=== PATIENT | male | born 1955 | race African-American/Black ===

== ENCOUNTER 2019-06-27 15:43 | Emergency (ER) | payer OTHER ==
--- OUTSIDE RECORDS SUMMARY | 2019-06-27 15:45 | XMS REPORT ---
:1955 Author Organization [facility] t Address [address] [place] [address] Care Team Providers Name Role Phone Yoselin GABRIEL Primary Care Physician Problems Condition Condition Condition Status Onset Resolution Last Treating Co mments Source Name Details Category Date Date Treatment Clinician Date HNP HNP Disease Active 2015-02 [place] (herniated (herniated 03-04 Me thodi nucleus nucleus 00:00: st pulposus), pulposus), 00 cervical cervical Cervical Cervical Disease Active 2015-02 [place] spondylosi spondylosi 03-04 Me thodi s without s without 00:00: st myelopathy myelopathy 00 Displaceme Displaceme Disease Active 2015-02 [place] of nt of 02-18 Method[facility] cervical cervical 00:00: st interverte interverte 00 bral disc bral disc without without myelopathy myelopathy Allergies, Adverse Reactions, Alerts This patient has no known allergies or adverse reactions. Family History Family Member Diagnosis Comments Start Date Stop Date Source Natural father Cancer [facility] Social [facility] Social Habit Start Date Stop Date Quantity Comments Source Sex Assigned At [facility] ethodi Alcohol intake 2016-01-17 2016-01-17 Current drinker of Enzo Alexis 00:00:00 00:00:00 alcohol (finding) Alcohol Comment 2015-10-29 2015-10-29 occasional [facility] ethodist 00:00:00 00:00:00 Smoking Status Start Date Stop Date Source Never smoker [place] [facility] Medications Ordered Filled Start Stop Current Ordering Indication Dosage Frequency Signature Comments Components Source Medication Medication Date Date Medication? Clinician (SIG) Name Name zolpidem Yes 5mg QD Take 5 mg [place] (AMBIEN) 5 1-05 by mouth Metho di MG tablet 17:26: nightly as st 16 needed for sleep. gabapentin 2015-02 Yes TAKE ONE Kyle ston (NEURONTIN) 2-12 CAPSULE BY Wy thodi 300 mg 00:00: MOUTH 3 st capsule 00 TIMES A DAY tamsulosin 2015-02 Yes .4mg QD Take 0.4 [place] st[place] (FLOMAX) 2-02 mg by Methodi 0.4 mg 20:13: mouth st capsule,ext 47 daily. ended release 24hr celecoxib 2015-02 Yes 200mg Q.5D Take 200 [place] st[place] (CeleBREX) 2-02 mg by Methodi 200 MG 20:13: mouth 2 st capsule 47 (two) times a day. losartan 2015-02 Yes 50mg QD Take 50 mg Kyle ston (COZAAR) 50 1-16 by mouth Meth makenzie MG tablet 00:00: once st 00 daily. HYDROcodone Yes TAKE 1 TO [place] -acetaminop 9-17 2 TABLETS Met hodi hen (NORCO 00:00: BY MOUTH 4 s t 10-325) 00 TIMES A 10-325 mg DAY per tablet NEEDED FOR PAIN pantoprazol Yes 40mg QD Take 40 mg Son e 9-14 by mouth Methodi (PROTONIX) 00:00: nightly. st 40 MG EC 00 tablet zolpidem Yes 10mg QD Take 10 mg [place] (AMBIEN) 10 9-09 by mouth Meth makenzie mg tablet 00:00: nightly. st 00 Procedures This patient has no known procedures. Plan of Care Planned Activity Planned Date Details Comments Source Future Scheduled 2019-09-13 INFLUENZA VACCINE [place] [facility] 00:00:00 [code = INFLUENZA VACCINE] Future Scheduled 2005-06-09 COLONOSCOPY SCREENING [facility] [facility] 00:00:00 [code = COLONOSCOPY SCREENING] Future Scheduled 2005-06-09 SHINGLES VACCINES [place] [facility] 00:00:00 (#1) [code = SHINGLES VACCINES (#1)] Results This patient has no known results.
--- OUTSIDE RECORDS SUMMARY | 2019-06-27 15:45 | XMS REPORT | Clinical Summary ---
:1955 Author Organization [facility] Address [address] [place] [address] Care Team Providers Name Role Phone Fab Wyatt MD Primary Care Provider Allergies No Known Allergies Medications Medication Sig Dispensed Refills Start Date End Date Status tamsulosin (FLOMAX) Take 0.4 mg by 0 Active 0.4 mg mouth daily. capsule,extended release 24hr zolpidem (AMBIEN) 5 MG Take 5 mg by 0 Active tablet mouth nightly as needed for sleep. HYDROcodone-acetaminop TAKE 1 TO 2 0 10/30/2015 Active hen (NORCO 10-325) TABLETS BY MOUTH 10-325 mg per tablet 4 TIMES A DAY NEEDED FOR PAIN pantoprazole Take 40 mg by 10 10/27/2015 Ac tive (PROTONIX) 40 MG EC mouth nightly. tablet zolpidem (AMBIEN) 10 Take 10 mg by 3 10/22/2015 Active mg tablet mouth nightly. losartan (COZAAR) 50 Take 50 mg by 1 12/29/2015 Active MG tablet mouth once daily. celecoxib (CeleBREX) Take 200 mg by 0 Active 200 MG capsule mouth 2 (two) times a day. 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 Last Filed Vital Signs Not on file Plan of Treatment Health Maintenance Due Date Last Done Comments COLONOSCOPY SCREENING 06/09/2005 SHINGLES VACCINES (#1) 06/09/2005 INFLUENZA VACCINE 09/13/2019 Implants Implanted Type Area Criminal Research Specialist Device Shelf Model / Serial Identifier Expiration / Lot Date System Spine Selnt For Dural Selng Exact 5ml Duraseal - [id number] Cardiovascular N/A: INTEGRA 12/12/2016 [id number] / Implanted: 10/29/2015 at [facility] (Quantity not on file) Imp lants N/A LIFESCIENCE / NEURO [id number] Spacer Algrft Acf Lordtc Ang 5deg 6mm - [id number] - [id number] Human Tissue N/A: MUSCULOSKELETAL 08/25/2016 [id number] / Implanted: Qty: 1 on 01/14/2016 by José Aviles MD at [facility] Implants N/A TRANSPLANT [id number] / FOUNDATION [id number] Kit Putty Bone 1.5ml Mastergraft - [id number] - [id number] Human Tiss ue N/A: MEDTRONIC SPINAL 06/12/2019 [id number] / Implanted: Qty: 1 on 01/14/2016 by José Aviles MD at [facility] Implants N/A AND BIOLOGICS [id number] / [id number] Spacer Algrft Acf Lordtc Ang 5deg 6mm - [id number] - [id number] Human Tissue N/A: MUSCULOSKELETAL 06/30/2016 [id number] / Implanted: Qty: 1 on 01/14/2016 by José Aviles MD at [facility] Implants N/A TRANSPLANT [id number] / FOUNDATION [id number] Plate Cerv Ant 42.5mm [place] Vision Elite - [id number] Spinal I mplants N/A: MEDTRONIC SPINAL [id number] / Implanted: 01/14/2016 at [facility] (Quantity not on file) N/A AND BIOLOGICS / Screw Spinal Slf-Drl V-Ang 4x17mm - [id number] Spinal Implants N/ A: MEDTRONIC SPINAL [id number] / Implanted: 01/14/2016 at [facility] (Quantity not on file) N/A AND BIOLOGICS / Matrix Hmstc Floseal 10ml W/ Humn F2 - [id number] Surgical N/A: LARSON 02/11/2017 [id number] / Implanted: 10/29/2015 at [facility] (Quantity not on file) Imp lants; N/A BIOSCIENCE / Expanders; [id number] Extenders; Surgical Wires Matrix Hmstc Floseal 10ml W/ Humn F2 - [id number] Surgical N/A: LARSON 05/12/2017 [id number] / Implanted: 01/14/2016 at 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
[2019-06-27] MEDS ORDERED: TETANUS & DIPHTHERIA TOX,ADULT 0.5 ML VIAL ONE (16:58)
--- NOTE | 2019-06-27 17:34 | ER ---
Nurse's Notes [facility] Name: Zaheer Cash Age: 64 yrs Sex: Male : 1955 Arrival Date: 06/27/2019 Time: 15:45 Bed 14 Private MD: Diagnosis: Laceration without foreign body of foot-left;Abrasion of hand-bilateral;Abrasion of foot-bilateral Presentation: 06/26 15:49 Chief complaint: Patient states: [place]. Cuts on L foot, R ca1 posterior ankle. Reports redness and swelling on L foot. Coronavirus screen: Proceed with normal triage. Patient denies a cough. Patient denies shortness of breath or difficulty breathing. Patient denies measured and/or subjective temperature greater than 100.4F prior to today's visit. Patient denies travel on a cruise ship or to a country the [facility] currently lists as an affected area. Patient denies contact with known and/or suspected case of COVID-19. Ebola Screen: Patient negative for fever greater than or equal to 101.5 degrees Fahrenheit, and additional compatible Ebola Virus Disease symptoms Patient denies exposure to infectious person. Patient denies travel to an Ebola-affected area in the 21 days before illness onset. No symptoms or risks identified at this time. Initial Sepsis Screen: Does the patient meet any 2 criteria? No. Patient's initial sepsis screen is negative. Does the patient have a suspected source of infection? No. Patient's initial sepsis screen is negative. Risk Assessment: Do you want to hurt yourself or someone else? Patient reports no desire to harm self or others. Onset of symptoms was June 27, 2019. 15:49 Method Of Arrival: Ambulatory ca1 15:49 Acuity: IFEANYI 4 ca1 Triage Assessment: 18:21 General: Appears in no apparent distress. Behavior is calm, cooperative. ll1 Historical: - Allergies: 15:53 No Known Allergies; ca1 - Home Meds: 15:53 amlodipine 5 mg tab 1 tab once daily [Active]; Celebrex 200 mg Oral cap 1 cap once ca1 daily [Active]; Flomax 0.4 mg Oral cp24 1 cap once daily [Active]; - PMHx: 15:53 Hypertension; ca1 - PSHx: 15:53 Right shoulder sx; cyst removal; ca1 - Immunization history:: Adult Immunizations up to date, Last tetanus immunization: unknown. - Social history:: Smoking status: Patient denies any tobacco usage or history of. Screenin:21 Abuse screen: Denies threats or abuse. Nutritional screening: No deficits noted. ll1 Tuberculosis screening: No symptoms or risk factors identified. Fall Risk Gait- Impaired (20 pts.). Total Wayne Fall Scale indicates No Risk (0-24 pts). Assessment: 17:00 General: Appears in no apparent distress. Behavior is calm, cooperative. Pain: ll1 Complains of pain in left foot and right foot Pain currently is 4 out of 10 on a pain scale. Neuro: No deficits noted. Cardiovascular: No deficits noted. Respiratory: No deficits noted. Derm: Wound noted Other: multiple small abrasions to both feet 1+ edema LLE. Reports pain pain with small wounds all over both feet. s/p abrasions with oyster shells last night. 18:00 Reassessment: No changes from previously documented assessment. Patient and/or family ll1 updated on plan of care and expected duration. Pain level reassessed. Patient is alert, oriented x 3, equal unlabored respirations, skin warm/dry/pink. Vital Signs: 15:49 BP 144 / 85; Pulse 113; Resp 16 S; Temp 97.3(TE); Pulse Ox 100% on R/A; Weight 83.91 kg ca1 (R); Height 5 ft. 11 in. (180.34 cm) (R); Pain 7/10; 18:05 BP 145 / 91; Pulse 98; Resp 18; Pulse Ox 99% ; Pain 4/10; ll1 15:49 Body Mass Index 25.80 (83.91 kg, 180.34 cm) ca1 ED Course: 15:45 Patient arrived in ED. as 15:51 Triage completed. ca1 15:53 Arm band placed on right wrist. ca1 16:23 Don Douglass PA is PHCP. cp 16:23 Marshall Morejon MD is Attending Physician. cp 16:48 Helen Baeza RN is Primary Nurse. ll1 16:59 XRAY Foot RIGHT 2 View In Process Unspecified. EDMS 17:00 both feet soaked in betadine/saline solution.. ll1 17:02 XRAY Foot LEFT 2 View In Process Unspecified. EDMS 18:20 Wounds irrigated with betadine and pressure wash. Tolerated well. Triple antibiotic ll1 applied. Bandaids used to cover abrasions. Tolerated well.. 18:21 Patient has correct armband on for positive identification. Bed in low position. Call ll1 light in reach. Side rails up X 1. 18:21 No provider procedures requiring assistance completed. Patient did not have IV access ll1 during this emergency room visit. Administered Medications: 17:02 Drug: Tetanus-Diphtheria Toxoid Adult 0.5 ml {Junior Qa Analyst: [employer]. Exp: ll1 07/18/2020. Lot #: [id number]. } Route: IM; Site: left deltoid; 18:22 Follow up: Response: No adverse reaction ll1 Outcome: 17:33 Discharge ordered by . daniel 17:57 Patient left the ED. ll1 18:21 Discharged to home via wheelchair. ll1 18:21 Condition: stable 18:21 Discharge instructions given to patient, Instructed on discharge instructions, follow up and referral plans. medication usage, wound care, Demonstrated understanding of instructions, follow-up care, medications, wound care, Prescriptions given X 2. Signatures: Dispatcher [employer] EDMS Sumaya De Leon Corey, PA PA cp Acob, Cheryl, RN RN ca1 Helen Baeza RN RN ll1
--- NOTE | 2019-06-27 17:34 | EDPHYS ---
Physician Documentation [facility] Name: Zaheer Cash Age: 64 yrs Sex: Male : 1955 Arrival Date: 06/27/2019 Time: 15:45 Bed 14 Private MD: ED Physician Marshall Morejon HPI: 06/26 17:26 This 64 yrs old Black Male presents to ER via Ambulatory with complaints of Feet cp Swelling, Hand Swelling. 17:27 The patient has a laceration related to: while walking occurred outdoors, Patient cp reports stepping and walking through [employer] yesterday causing abrasions and lacerations to hands and feet. Onset: The symptoms/episode began/occurred yesterday, at 18:00. Associated signs and symptoms: Pertinent negatives: heavy bleeding. Historical: - Allergies: 15:53 No Known Allergies; ca1 - Home Meds: 15:53 amlodipine 5 mg tab 1 tab once daily [Active]; Celebrex 200 mg Oral cap 1 cap once ca1 daily [Active]; Flomax 0.4 mg Oral cp24 1 cap once daily [Active]; - PMHx: 15:53 Hypertension; ca1 - PSHx: 15:53 Right shoulder sx; cyst removal; ca1 - Immunization history:: Adult Immunizations up to date, Last tetanus immunization: unknown. - Social history:: Smoking status: Patient denies any tobacco usage or history of. ROS: 17:28 Constitutional: Negative for body aches, chills, fever. cp 17:28 Respiratory: Negative for cough, shortness of breath. 17:28 Abdomen/GI: Negative for abdominal pain. 17:28 Skin: Positive for abrasion(s), laceration(s), of the right hand, left hand, right foot and left foot. 17:28 All other systems are negative. Exam: 17:29 Constitutional: The patient appears in no acute distress, alert, awake, non-toxic, well cp developed, well nourished. 17:29 Musculoskeletal/extremity: Extremities: noted in the left foot: swelling, tenderness, There is no evidence of erythema, skin warmth, Pulses: noted to be 2+ in the right dorsalis pedis artery and left dorsalis pedis artery, Sensation intact. 17:29 Skin: injury, abrasion(s), small abrasion noted, moderate sized abrasion noted, of the right hand, left hand, right foot and left foot, laceration(s), of the web space of left fourth and fifth toes, that can be described as irregular, without bleeding, superficial. Vital Signs: 15:49 BP 144 / 85; Pulse 113; Resp 16 S; Temp 97.3(TE); Pulse Ox 100% on R/A; Weight 83.91 kg ca1 (R); Height 5 ft. 11 in. (180.34 cm) (R); Pain 7/10; 18:05 BP 145 / 91; Pulse 98; Resp 18; Pulse Ox 99% ; Pain 4/10; ll1 15:49 Body Mass Index 25.80 (83.91 kg, 180.34 cm) ca1 MDM: 16:25 Patient medically screened. cp 17:32 Data reviewed: vital signs, nurses notes, and as a result, I will discharge patient. cp 17:32 Differential diagnosis: superficial laceration, tendon injury, vascular injury, foreign cp body. Counseling: I had a detailed discussion with the patient and/or guardian regarding: the historical points, exam findings, and any diagnostic results supporting the discharge/admit diagnosis, to return to the emergency department if symptoms worsen or persist or if there are any questions or concerns that arise at home. Response to treatment: the patient's symptoms have markedly improved after treatment. 06/26 16:42 Order name: XRAY Foot RIGHT 2 View 06/26 16:42 Order name: XRAY Foot LEFT 2 View 06/26 16:42 Order name: Wound Care: please clean and irrigate wounds; Complete Time: 16:58 cp Administered Medications: 17:02 Drug: Tetanus-Diphtheria Toxoid Adult 0.5 ml {Services Mgr: [employer]. Exp: ll1 07/18/2020. Lot #: [id number]. } Route: IM; Site: left deltoid; 18:22 Follow up: Response: No adverse reaction ll1 Disposition: 17:45 Chart complete. cp 18:15 Co-signature as Attending Physician, Marshall Morejon MD. ma2 Disposition: 06/27/19 17:33 Discharged to Home. Impression: Laceration without foreign body of foot - left, Abrasion of hand - bilateral, Abrasion of foot - bilateral. - Condition is Stable. - Discharge Instructions: Abrasion, Laceration Care, Adult. - Prescriptions for Doxycycline Hyclate 100 mg Oral Tablet - take 1 tablet by ORAL route every 12 hours; 20 tablet. Cipro 500 mg Oral Tablet - take 1 tablet by ORAL route every 12 hours for 7 days; 20 tablet. - Medication Reconciliation Form, Thank You Letter, Antibiotic Education, Prescription Opioid Use form. - Follow up: Private Physician; When: 1 - 2 days; Reason: Worsening of condition. - Problem is new. - Symptoms have improved. Signatures: Dispatcher [employer] EDMS Don Douglass PA PA cp Marshall Morejon MD MD ma2 Isabela Gil RN RN ca1 Helen Baeza RN RN ll1 Corrections: (The following items were deleted from the chart) 17:57 17:33 06/27/2019 17:33 Discharged to Home. Impression: Laceration without foreign body ll1 of foot - left; Abrasion of hand - bilateral; Abrasion of foot - bilateral. Condition is Stable. Forms are Medication Reconciliation Form, Thank You Letter, Antibiotic Education, Prescription Opioid Use. Follow up: Private Physician; When: 1 - 2 days; Reason: Worsening of condition. Problem is new. Symptoms have improved. cp
[2019-06-27 18:27] VITALS: BP 144/85; TEMP 97.3; O2SAT 100
--- NOTE | 2019-06-27 18:28 | RAD REPORT ---
EXAM DESCRIPTION: RAD - Foot Right 2 View - 06/27/2019 4:57 pm CLINICAL HISTORY: stepped in [employer] reef yesterday Pain and swelling COMPARISON: No comparisons FINDINGS: No fracture is seen. No radiopaque foreign body. Small plantar calcaneal spur.
--- NOTE | 2019-06-27 18:29 | RAD REPORT ---
EXAM DESCRIPTION: RAD - Foot Left 2 View - 06/27/2019 4:58 pm CLINICAL HISTORY: stepped in [place]yster [place] yesterday Pain and swelling COMPARISON: No comparisons FINDINGS: No fracture or radiopaque foreign body. Soft tissue swelling is seen along the dorsum of t he forefoot. Tiny plantar calcaneal spur.
== END 2019-06-27 17:57 | disposition home or self-care (01) ==
LOC: ER 15:43
DX: S91.312A Laceration without foreign body, left foot, initial encounter (principal); S90.812A Abrasion, left foot, initial encounter; S90.811A Abrasion, right foot, initial encounter; S60.512A Abrasion of left hand, initial encounter; S60.511A Abrasion of right hand, initial encounter; W26.8XXA Contact with other sharp object(s), not elsewhere classified, initial encounter; Y93.01 Activity, walking, marching and hiking; Y92.89 Other specified places as the place of occurrence of the external cause; Z23 Encounter for immunization; I10 Essential (primary) hypertension
CPT/HCPCS: 90471; 90714; 99283

== ENCOUNTER 2019-12-13 16:11 | Emergency (ER) | payer OTHER ==
--- OUTSIDE RECORDS SUMMARY | 2019-12-13 16:13 | XMS REPORT | Clinical Summary ---
:1955 Author Organization [facility] Address [address] [place] [address] Care Team Providers Name Role Phone Fab Wyatt MD Primary Care Provider Allergies No Known Active Allergies Medications Medication Sig Dispensed Refills Start [...] cervical intervertebral disc without m yelopathy 12/20/2015 Surgical History Surgery Date Site/Laterality Comments SHOULDER SURGERY rt ac joint sep eration CYST REMOVAL 02/13/1996 - Left cyst under rib c age 1202/11/1997 LAMINECTOMY, CERVICAL, 10/29/2015 Neck/Left Procedure : LAMINECTOMY, POSTERIOR APPROACH CERVICAL, POS TERIOR APPROACH W/ DISE CTOMY, LEFT C6-T1; Juan geon: José Aviles MD ; Location: [facility] OR; Service: Neurosu rgery; Laterality: Left ; Medical devices from this surgery are in t he Implants section . DISCECTOMY, CERVICAL, 01/14/2016 Neck/Anterior Procedure: ANTERIOR WITH FUSION, ANTERIOR CERVICAL D ISCECTOMY AND APPROACH FUSION, C6-C7, C 7-T1 W/ CADAVER BONE GRA FT; Surgeon: José Aviles MD; Lo cation: [facility] OR; Se rvice: Neurosurgery; Laterality: Ante rior; Medical devices from this surgery are in t he Implants section . Medical History Medical History Date Comments Dentition all teeth secure Pneumonia 5 years ago Bronchitis several years ago Numbness from neck left leg Prostate enlargement Anesthesia NHAP/NFHAP Advanced directives, counseling/discussion copy given Arthritis Neck, back, shoulder Motion sickness Hypertension Family History Medical History Relation Name Comments Cancer Father Cancer Mother Relation Name Status Comments Father Mother Social History Tobacco Use Types Packs/Day Years Used Date Never Smoker Alcohol Use Drinks/Week oz/Week Comments Yes occasional Sex Assigned at Date Recorded Not on file Last Filed Vital Signs Not on file Plan of Treatment Health Maintenance Due Date Last Done Comments COLONOSCOPY SCREENING 06/09/2005 SHINGLES VACCINES (#1) 06/09/2005 INFLUENZA VACCINE 09/13/2019 Implants Implanted Type Area Geoscience Specialist Device Shelf Model / Serial Identifier Expiration / Lot Date System Spine Selnt For Dural Selng Exact 5ml Duraseal - [id number] Cardiovascular N/A: INTEGRA 12/12/2016 [id number] / Implanted: 10/29/2015 at [facility] (Quantity not on file) Imp lants N/A LIFESCIENCE / NEURO [id number] Spacer Algrft Acf Lordtc Ang 5deg 6mm - [id number] - [id number] Human Tissue N/A: MUSCULOSKELETAL 08/25/2016 [id number] / Implanted: Qty: 1 on 01/14/2016 by José Aviles MD at [facility] Implants N/A TRANSPLANT [id number] / FOUNDATION [id number] Kit Putty Bone 1.5ml Mastergraft - [id number] - [id number] Human Tiss ue N/A: MEDTRONIC SPINAL 06/12/2019 [id number] / Implanted: Qty: 1 on 01/14/2016 by José Aviles MD at [facility] Implants N/A AND BIOLOGICS [id number] / [id number] Spacer Algrft Acf Lordtc Ang 5deg 6mm - [id number] - [id number] Human Tissue N/A: MUSCULOSKELETAL 06/30/2016 [id number] / Implanted: Qty: 1 on 01/14/2016 by José Aviles MD at [facility] Implants N/A TRANSPLANT [id number] / FOUNDATION [id number] Plate Cerv Ant 42.5mm [place] Vision Elite - [id number] Spinal I mplants N/A: MEDTRONIC SPINAL [id number] / Implanted: 01/14/2016 at [facility] (Quantity not on file) N/A AND BIOLOGICS / Screw Spinal Slf-Drl V-Ang 4x17mm - [id number] Spinal Implants N/ A: MEDTRONIC SPINAL [id number] / Implanted: 01/14/2016 at [facility] (Quantity not on file) N/A AND BIOLOGICS / Matrix Hmstc Floseal 10ml W/ Humn F2 - [id number] Surgical N/A: LARSON 02/11/2017 [id number] / Implanted: 10/29/2015 at [facility] (Quantity not on file) Imp lants; N/A BIOSCIENCE / Expanders; [id number] Extenders; Surgical Wires Matrix Hmstc Floseal 10ml W/ Humn F2 - [id number] Surgical N/A: LARSON 05/12/2017 [id number] / Implanted: 01/14/2016 at [facility] (Quantity not on file) Imp lants; N/A BIOSCIENCE / Expanders; [id number] Extenders; Surgical Wires Results Not on fileafter 12/12/2018 Advance Directives For more information, please contact: [phone] Type Date Recorded 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
--- OUTSIDE RECORDS SUMMARY | 2019-12-13 16:13 | XMS REPORT | Continuity of Care Document ---
:1955 Author Organization [facility] t Address [address] [place] [address] Care Team Providers Name Role Phone Yoselin GABRIEL Primary Care Physician Problems Condition Condition Condition Status Onset Resolution Last Treating Co mments Source Name Details Category Date Date Treatment Clinician Date HNP HNP Disease Active 2015-02 [place] (herniated (herniated 03-04 Me thodi nucleus nucleus [...] Date Stop Date Source Natural father Cancer [facility] Social History Social Habit Start Date Stop Date Quantity Comments Source Sex Assigned At [facility] ethodi Alcohol intake 2016-01-17 2016-01-17 Current drinker of Enzo Alexis 00:00:00 00:00:00 alcohol (finding) Alcohol Comment 2015-10-29 2015-10-29 occasional [facility] ethodist 00:00:00 00:00:00 Smoking Status Start Date Stop Date Source Never smoker [place] [facility] Medications Ordered Filled Start Stop Current Ordering Indication Dosage Frequency Signature Comments Components Source Medication Medication Date Date Medication? Clinician (SIG) Name Name zolpidem Yes 5mg QD Take 5 mg [place] (AMBIEN) 5 1-05 by mouth Metho di MG tablet 11:26: nightly as st 16 needed for sleep. gabapentin 2015-02 Yes TAKE ONE Kyle ston (NEURONTIN) 2-12 CAPSULE BY Md thodi 300 mg 00:00: MOUTH 3 st capsule 00 TIMES A DAY tamsulosin 2015-02 Yes .4mg QD Take 0.4 Kyle ston (FLOMAX) 2-02 mg by Methodi 0.4 mg 14:13: mouth st capsule,ext 47 daily. ended release 24hr celecoxib 2015-02 Yes 200mg Q.5D Take 200 Kyle ston (CeleBREX) 2-02 mg by Methodi 200 MG 14:13: mouth 2 st capsule 47 (two) times [...] Comments Source Future Scheduled 2019-09-13 INFLUENZA VACCINE [facility] 00:00:00 [code = INFLUENZA VACCINE] Future Scheduled 2005-06-09 COLONOSCOPY SCREENING [facility] 00:00:00 [code = COLONOSCOPY SCREENING] Future Scheduled 2005-06-09 SHINGLES VACCINES [place] [facility] 00:00:00 (#1) [code = SHINGLES VACCINES (#1)] Results This patient has no known results.
--- NOTE | 2019-12-13 17:51 | RAD REPORT ---
EXAM DESCRIPTION: RAD - Finger-Thumb Left - 12/13/2019 5:32 pm CLINICAL HISTORY: hand injury FINDINGS: No fracture or dislocation noted
--- NOTE | 2019-12-13 18:29 | EDPHYS ---
Physician Documentation [facility] Name: Zaheer Cash Age: 64 yrs Sex: Male : 1955 Arrival Date: 12/13/2019 Time: 16:11 Bed 24 Private MD: Fab Wyatt ED Physician Don Jackson HPI: 12/12 17:30 This 64 yrs old Black Male presents to ER via Ambulatory with complaints of Laceration cp - finger. 17:30 The patient or guardian reports a laceration. The complaints affect the dorsal aspect cp of middle phalanx of left little finger. 17:30 Context: occurred accidently from knife being used to clean deer. Onset: The cp symptoms/episode began/occurred yesterday. Associated signs and symptoms: Pertinent negatives: cyanosis distally, decreased sensation distally. Historical: - Allergies: 16:46 No Known Allergies; iw - Home Meds: 16:46 amlodipine 5 mg tab 1 tab once daily [Active]; amitriptyline Oral [Active]; losartan iw oral oral [Active]; - PMHx: 16:46 Hypertension; iw - PSHx: 16:46 Right shoulder sx; cyst removal; iw - Immunization history:: Adult Immunizations up to date. - Social history:: Smoking status: . ROS: 17:35 Skin: Positive for laceration(s), of the dorsal aspect of middle phalanx of left little cp finger. 17:35 Constitutional: Negative for fever. cp 17:35 Neuro: Negative for numbness, tingling. 17:35 All other systems are negative. Exam: 17:40 Constitutional: The patient appears in no acute distress, alert, awake, well developed, cp well nourished. 17:40 Skin: injury, laceration(s), the wound is approximately 2 cm(s), of the dorsal aspect cp of middle phalanx of left little finger, that can be described as no foreign body, linear, with mild bleeding. Vital Signs: 16:43 BP 130 / 97; Pulse 98; Resp 16; Temp 97.6; Pulse Ox 100% on R/A; Weight 85.28 kg; iw Height 5 ft. 11 in. (180.34 cm); 16:43 Body Mass Index 26.22 (85.28 kg, 180.34 cm) iw MDM: 17:15 Patient medically screened. cp 17:49 Test interpretation: by ED physician or midlevel provider: xrays of left small finger cp negative for fracture. 18:00 Differential diagnosis: open fracture, contusion, abrasion, laceration. cp 18:26 Data reviewed: vital signs, nurses notes, radiologic studies, plain films, and as a cp result, I will discharge patient. 18:27 Response to treatment: the patient's symptoms have markedly improved after treatment, cp and as a result, I will discharge patient. 12/12 17:19 Order name: XRAY Finger-Thumb Left; Complete Time: 18:07 cp 12/12 18:07 Interpretation: Report reviewed. cp 12/12 18:30 Order name: Finger Splint; Complete Time: 18:36 cp 12/12 18:30 Order name: Wound dressing; Complete Time: 18:36 cp Administered Medications: No medications were administered Disposition: 18:45 Chart complete. cp 12/13 14:43 Co-signature as Attending Physician, Don Jackson MD I agree with the assessment and [facility] plan of care. Disposition: 12/13/19 18:28 Discharged to Home. Impression: Laceration without foreign body of finger without damage to nail - Left Small finger. - Condition is Stable. - Discharge Instructions: Laceration Care, Adult. - Prescriptions for Doxycycline Hyclate 100 mg Oral Tablet - take 1 tablet by ORAL route every 12 hours for 7 days; 14 tablet. Bactrim DS 800- 160 mg Oral Tablet - take 1 tablet by ORAL route every 12 hours for 7 days; 14 tablet. - Medication Reconciliation Form, Thank You Letter, Antibiotic Education, Prescription Opioid Use form. - Follow up: Private Physician; When: 2 - 3 days; Reason: Worsening of condition. - Problem is new. - Symptoms have improved. Signatures: Dispatcher [employer] Don Moreau MD MD cha Williams, Irene, RN RN Don Beard PA PA cp Corrections: (The following items were deleted from the chart) 12/12 18:42 18:28 12/13/2019 18:28 Discharged to Home. Impression: Laceration without foreign body iw of finger without damage to nail - Left Small finger. Condition is Stable. Forms are Medication Reconciliation Form, Thank You Letter, Antibiotic Education, Prescription Opioid Use. Follow up: Private Physician; When: 2 - 3 days; Reason: Worsening of condition. Problem is new. Symptoms have improved. cp
--- NOTE | 2019-12-13 18:29 | ER ---
Nurse's Notes [facility] Name: Zaheer Cash Age: 64 yrs Sex: Male : 1955 Arrival Date: 12/13/2019 Time: 16:11 Bed 24 Private MD: Fab Wyatt Diagnosis: Laceration without foreign body of finger without damage to nail-Left Small finger Presentation: 12/12 16:43 Chief complaint: Patient states: cut left pinky knuckle last night with a knife, won't iw stop bleeding. Coronavirus screen: At this time, the client does not indicate any symptoms associated with coronavirus-19. Ebola Screen: Patient negative for fever greater than or equal to 101.5 degrees Fahrenheit, and additional compatible Ebola Virus Disease symptoms Patient denies exposure to infectious person. Patient denies travel to an Ebola-affected area in the 21 days before illness onset. No symptoms or risks identified at this time. Complicating Factors: The patient fell landing on an outstretched hand. Initial Sepsis Screen: Does the patient meet any 2 criteria? No. Patient's initial sepsis screen is negative. Does the patient have a suspected source of infection? No. Patient's initial sepsis screen is negative. Risk Assessment: Do you want to hurt yourself or someone else? Patient reports no desire to harm self or others. Onset of symptoms was December 12, 2019. 16:43 Method Of Arrival: Ambulatory iw 16:43 Acuity: IFEANYI 4 iw Historical: - Allergies: 16:46 No Known Allergies; iw - Home Meds: 16:46 amlodipine 5 mg tab 1 tab once daily [Active]; amitriptyline Oral [Active]; losartan iw oral oral [Active]; - PMHx: 16:46 Hypertension; iw - PSHx: 16:46 Right shoulder sx; cyst removal; iw - Immunization history:: Adult Immunizations up to date. - Social history:: Smoking status: . Screenin:41 Abuse screen: Denies threats or abuse. Denies injuries from another. Nutritional iw screening: No deficits noted. Tuberculosis screening: No symptoms or risk factors identified. Fall Risk None identified. Assessment: 17:17 General: Appears in no apparent distress. comfortable, Behavior is calm, cooperative. iw Pain: Denies pain. Neuro: Level of Consciousness is awake, alert, obeys commands, Oriented to person, place, time, situation. Cardiovascular: Patient's skin is warm and dry. Respiratory: Respiratory effort is even, unlabored, Respiratory pattern is regular. Musculoskeletal: Range of motion: intact in all extremities. Injury Description: Laceration sustained to dorsal aspect of middle phalanx of left little finger. 17:17 Injury Description: Laceration is 0.5 to 2.5 cm long. iw Vital Signs: 16:43 BP 130 / 97; Pulse 98; Resp 16; Temp 97.6; Pulse Ox 100% on R/A; Weight 85.28 kg; iw Height 5 ft. 11 in. (180.34 cm); 16:43 Body Mass Index 26.22 (85.28 kg, 180.34 cm) iw ED Course: 16:11 Patient arrived in ED. as 16:12 Fab Wyatt MD is Private Physician. as 16:45 Triage completed. iw 16:46 Arm band placed on. iw 17:13 Don Douglass PA is PHCP. cp 17:13 Don Jackson MD is Attending Physician. cp 17:17 Jamee Cota, RN is Primary Nurse. iw 17:17 Patient has correct armband on for positive identification. iw 17:33 XRAY Finger-Thumb Left In Process Unspecified. EDMS 18:40 No provider procedures requiring assistance completed. iw 18:41 Patient did not have IV access during this emergency room visit. iw Administered Medications: No medications were administered Outcome: 18:28 Discharge ordered by MD. cp 18:41 Discharged to home ambulatory. iw 18:41 Condition: good 18:41 Discharge instructions given to patient, Instructed on discharge instructions, follow up and referral plans. medication usage, Demonstrated understanding of instructions, follow-up care, medications, Prescriptions given X 2. 18:42 Patient left the ED. iw Signatures: Dispatcher [employer] EDMS Sumaya De Leon as Jamee Cota, RN RN iw Don Douglass PA PA cp Corrections: (The following items were deleted from the chart) 20:00 18:41 Discharge instructions given to patient, Instructed on discharge instructions, iw follow up and referral plans. medication usage, Demonstrated understanding of instructions, follow-up care, medications, Prescriptions given X 1, iw
[2019-12-13 18:59] VITALS: BP 130/97; TEMP 97.6; O2SAT 100
== END 2019-12-13 18:42 | disposition home or self-care (01) ==
LOC: ER 16:11
DX: S61.217A Laceration without foreign body of left little finger without damage to nail, initial encounter (principal); W26.0XXA Contact with knife, initial encounter; Y93.89 Activity, other specified; Y92.9 Unspecified place or not applicable; I10 Essential (primary) hypertension
CPT/HCPCS: 99283

== ENCOUNTER 2020-08-07 15:10 | Emergency (ER) | payer OTHER ==
--- OUTSIDE RECORDS SUMMARY | 2020-08-07 15:13 | XMS REPORT | Continuity of Care Document ---
:1955 Author Organization [facility] t Address 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 Family History Family Member Diagnosis Comments Start Date Stop Date Source Natural father Cancer [facility] thodist Natural mother Cancer [facility] thodist Social History Social Habit Start Date Stop Date Quantity Comments Source Alcohol intake 2016-01-17 2016-01-17 Current drinker of Enzo Alexis 00:00:00 00:00:00 alcohol (finding) Alcohol Comment 2015-10-29 2015-10-29 occasional [place] [facility] ethodist 00:00:00 00:00:00 Sex Assigned At [birth year] [facility] ethodist 00:00:00 00:00:00 Smoking Status Start Date Stop Date Source Never smoker [place] [place] Medications Ordered Filled Start Stop Current Ordering Indication Dosage Frequency Signature Comments Components Source Medication Medication Date Date Medication? Clinician (SIG) Name Name zolpidem Yes 5mg QD Take 5 mg [place] (AMBIEN) 5 1-05 by mouth Metho di MG tablet 11:26: nightly as st 16 needed for sleep. gabapentin 2015-02 Yes TAKE ONE Kyle ston (NEURONTIN) 2-12 CAPSULE BY Tn thodi 300 mg 00:00: MOUTH 3 st [...] Planned Date Details Comments Source Future Scheduled 2020-09-12 INFLUENZA VACCINE [facility] 00:00:00 [code = INFLUENZA VACCINE] Future Scheduled 2020-06-09 65+ PNEUMOCOCCAL [facility] Test 00:00:00 VACCINE (1 of 1 - PPSV23) [code = 65+ PNEUMOCOCCAL VACCINE (1 of 1 - PPSV23)] Future Scheduled 2005-06-09 COLONOSCOPY SCREENING [facility] 00:00:00 [code = COLONOSCOPY SCREENING] Future Scheduled 2005-06-09 SHINGLES VACCINES (#1) [facility] 00:00:00 [code = SHINGLES VACCINES (#1)] Future Scheduled 1967 COVID-19 VACCINE (1) [facility] 00:00:00 [code = COVID-19 VACCINE (1)] Results This patient has no known results.
[2020-08-07] MEDS ORDERED: LIDOCAINE 1% MPF 5 ML VIAL ONE (17:19)
[2020-08-07] MEDS ORDERED: TETANUS & DIPHTHERIA TOX,ADULT 0.5 ML VIAL ONE (17:20)
[2020-08-07] MEDS ORDERED: BUPIVACAINE 0.5% PF 10 ML VIAL ONE (17:20)
--- NOTE | 2020-08-07 18:14 | RAD REPORT ---
EXAM DESCRIPTION: RAD - Hand Left 3 View - 08/07/2020 5:07 pm CLINICAL HISTORY: Laceration COMPARISON: None. FINDINGS: No fracture, dislocation or periosteal reaction noted. No foreign body or other soft tissu e abnormality. IMPRESSION: Negative left hand examination.
--- NOTE | 2020-08-07 18:19 | ER ---
Nurse's Notes [facility] Name: Zaheer Cash Age: 65 yrs Sex: Male : 1955 Arrival Date: 08/07/2020 Time: 15:13 Bed 17 Private MD: Diagnosis: Laceration without foreign body of left hand Presentation: 08/07 15:18 Chief complaint: Patient states: Slipped on boat ramp. 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 Laceration to 2nd and 5th digits. Abrasions to palm of L hand. No active bleeding. Coronavirus screen: Client denies travel out of the [place] in the last 14 days. At this time, the client does not indicate any symptoms associated with coronavirus-19. Ebola Screen: Patient denies travel to an Ebola-affected area in the 21 days before illness onset. Complicating Factors: There are no complicating factors for this patient. Initial Sepsis Screen: Does the patient meet any 2 criteria? No. Patient's initial sepsis screen is negative. Does the patient have a suspected source of infection? Yes: Skin breakdown/wound. Risk Assessment: Do you want to hurt yourself or someone else? Patient reports no desire to harm self or others. Onset of symptoms was August 07, 2020. 15:18 Method Of Arrival: Ambulatory 1 15:18 Acuity: IFEANYI 4 ll1 Triage Assessment: 15:55 Pain: Complains of pain in left hand Pain currently is 4 out of 10 on a pain scale. rb3 Historical: - Allergies: 15:21 No Known Allergies; ll1 - PMHx: 15:21 Hypertension; ll1 - PSHx: 15:21 Right shoulder sx; neck SX x 2; cyst removal; ll1 - Immunization history:: Last tetanus immunization: < 10 years ago Flu vaccine is up to date. - Social history:: Smoking status: Patient denies any tobacco usage or history of. Screenin:55 Abuse screen: Denies threats or abuse. Nutritional screening: No deficits noted. rb3 Tuberculosis screening: No symptoms or risk factors identified. Fall Risk None identified. Assessment: 15:55 General: Appears in no apparent distress. Behavior is calm, cooperative. Neuro: Level rb3 of Consciousness is awake, alert, obeys commands, Oriented to person, place, time, situation. Cardiovascular: Patient's skin is warm and dry. Respiratory: Airway is patent Respiratory effort is even, unlabored, Respiratory pattern is regular, symmetrical. GI: No signs and/or symptoms were reported involving the gastrointestinal system. : No signs and/or symptoms were reported regarding the genitourinary system. Musculoskeletal: Range of motion: intact in all extremities. Injury Description: Laceration sustained to left hand, 2nd and 5th digits is contaminated, not bleeding, was sustained 2-4 hours ago. is bleeding no active bleeding noted. 16:52 Reassessment: Patient appears in no apparent distress at this time. Patient and/or rb3 family updated on plan of care and expected duration. Pain level reassessed. Patient is alert, oriented x 3, equal unlabored respirations, skin warm/dry/pink. 17:43 Reassessment: Patient appears in no apparent distress at this time. No changes from rb3 previously documented assessment. 18:30 Reassessment: Applied Triple Antibiotic Ointment and Non-adherent gauze to the wound. rb3 No bleeding noted at this time. Pt. tolerated well. 18:37 Reassessment: Patient appears in no apparent distress at this time. Patient and/or rb3 family updated on plan of care and expected duration. Pain level reassessed. Patient is alert, oriented x 3, equal unlabored respirations, skin warm/dry/pink. Patient denies pain at this time. Vital Signs: 15:18 BP 155 / 104; Pulse 91; Resp 17; Temp 97.4; Pulse Ox 100% ; Weight 81.65 kg; Height 5 ll1 ft. 11 in. (180.34 cm); Pain 2/10; 16:44 BP 156 / 97; Pulse 89; Resp 17; Pulse Ox 99% ; rb3 17:42 BP 152 / 91; Pulse 87; Resp 18; Pulse Ox 100% ; rb3 18:30 BP 155 / 93; Pulse 85; Resp 18; Pulse Ox 99% ; rb3 15:18 Body Mass Index 25.10 (81.65 kg, 180.34 cm) ll1 ED Course: 15:13 Patient arrived in ED. as 15:20 Triage completed. ll1 15:22 Arm band placed on. ll1 15:55 Patient has correct armband on for positive identification. Bed in low position. Call rb3 light in reach. Side rails up X 1. Pulse ox on. NIBP on. 15:57 Patient placed in an exam room, on a stretcher. ll1 16:13 Claus Gan NP is PHCP. pm1 16:13 Don Jackson MD is Attending Physician. pm1 16:55 Tatyana Coelho RN is Primary Nurse. rb3 17:07 Hand Left 3 View XRAY In Process Unspecified. EDMS 18:18 Boy Nava MD is Referral Physician. pm1 18:46 No provider procedures requiring assistance completed. Patient did not have IV access rb3 during this emergency room visit. 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 Exp: rb3 04/16/2022. Lot #: [id number]. } Route: IM; Site: right deltoid; 18:30 Follow up: Response: No adverse reaction rb3 18:28 Drug: Doxycycline 100 mg Route: PO; rb3 18:41 Follow up: Response: Medication administered at discharge. rb3 Outcome: 18:18 Discharge ordered by . pm1 18:46 Discharged to home ambulatory. rb3 18:46 Condition: stable 18:46 Discharge instructions given to patient, Instructed on discharge instructions, follow up and referral plans. medication usage, Demonstrated understanding of instructions, follow-up care, medications, Prescriptions given X 1. 18:47 Patient left the ED. rb3 Signatures: Dispatcher [employer] EDOR Sumaya De Leon as Claus Gan NP SYSTEMS MANAGEMENT CONSULTANT pm1 Helen Baeza RN RN ll1 Tatyana Coelho RN RN rb3
--- NOTE | 2020-08-07 18:19 | EDPHYS ---
Physician Documentation [facility] Name: Zaheer Cash Age: 65 yrs Sex: Male : 1955 Arrival Date: 08/07/2020 Time: 15:13 Bed 17 Private MD: ED Physician Don Jackson HPI: 08/07 16:29 This 65 yrs old Black Male presents to ER via Ambulatory with complaints of Laceration pm1 - fingers. 16:29 The patient or guardian reports a laceration, irregular. The complaints affect the pm1 dorsal aspect of proximal phalanx of left index finger and palmar aspect of proximal phalanx of left little finger. Context: [place] on [place] and stopped his fall with his left hand. Left hand cut on oyster shells . Onset: The symptoms/episode began/occurred just prior to arrival. Modifying factors: The symptoms are alleviated by pressure to area, the symptoms are aggravated by nothing. Associated signs and symptoms: Pertinent negatives: cyanosis distally, decreased sensation distally, numbness distally, tingling distally. Severity of symptoms: in the emergency department the symptoms are unchanged. The patient has not experienced similar symptoms in the past. The patient has not recently seen a physician. Historical: - Allergies: 15:21 No Known Allergies; ll1 - PMHx: 15:21 Hypertension; ll1 - PSHx: 15:21 Right shoulder sx; neck SX x 2; cyst removal; ll1 - Immunization history:: Last tetanus immunization: < 10 years ago Flu vaccine is up to date. - Social history:: Smoking status: Patient denies any tobacco usage or history of. ROS: 16:29 Constitutional: Negative for fever, chills, and weight loss, Cardiovascular: Negative pm1 for chest pain, palpitations, and edema, Respiratory: Negative for shortness of breath, cough, wheezing, and pleuritic chest pain. 16:29 Neuro: Negative for headache, weakness, numbness, tingling, and seizure. 16:29 MS/extremity: Positive for laceration, of the palmar aspect of proximal phalanx of left little finger and dorsal aspect of proximal phalanx of left index finger, Negative for decreased range of motion, deformity, paresthesias, tingling. 16:29 Skin: Positive for laceration(s), of the palmar aspect of proximal phalanx of left little finger and dorsal aspect of proximal phalanx of left index finger. 16:29 All other systems are negative. pm1 Exam: 16:29 Constitutional: This is a well developed, well nourished patient who is awake, alert, pm1 and in no acute distress. Head/Face: Normocephalic, atraumatic. Neck: Trachea midline, no thyromegaly or masses palpated, and no cervical lymphadenopathy. Supple, full range of motion without nuchal rigidity, or vertebral point tenderness. No Meningismus. 16:29 Eyes: Exam is negative for acute changes, Extraocular movements: intact throughout, Conjunctiva: normal, no injection. 16:29 ENT: Exam is negative for acute changes, Mouth: Lips: normal, Oral mucosa: normal, pink and intact, moist. 16:29 Cardiovascular: Rate: normal, Rhythm: regular, Pulses: no pulse deficits are appreciated. 16:29 Respiratory: Exam negative for acute changes, respiratory distress, shortness of breath. 16:29 Musculoskeletal/extremity: Extremities: grossly normal except: noted in the dorsal aspect of proximal phalanx of left index finger and palmar aspect of proximal phalanx of left little finger: laceration, There is no evidence of decreased ROM, deformity. 16:29 Skin: Appearance: normal except for affected area, injury, laceration(s), that can be described as clean, no foreign body, irregular, without bleeding, to left hand as noted on extremity exam. 16:29 Neuro: Exam negative for acute changes, Orientation: is normal, Mentation: is normal, Motor: is normal, moves all fours. Vital Signs: 15:18 BP 155 / 104; Pulse 91; Resp 17; Temp 97.4; Pulse Ox 100% ; Weight 81.65 kg; Height 5 ll1 ft. 11 in. (180.34 cm); Pain 2/10; 16:44 BP 156 / 97; Pulse 89; Resp 17; Pulse Ox 99% ; rb3 17:42 BP 152 / 91; Pulse 87; Resp 18; Pulse Ox 100% ; rb3 18:30 BP 155 / 93; Pulse 85; Resp 18; Pulse Ox 99% ; rb3 15:18 Body Mass Index 25.10 (81.65 kg, 180.34 cm) ll1 Laceration: 18:12 Wound Repair of 2cm ( 0.8in ) subcutaneous laceration to palmar aspect of proximal pm1 phalanx of left little finger. Irregularly shaped.. Distal neuro/vascular/tendon intact. Anesthesia: Local anesthetic administered with 1 mls of Lido/Marcaine. Wound prep: Extensive cleansing with betadine with hibiclenz by me, Wound irrigation with saline by me, Wound explored extensively, Copious irrigation. Skin closed with 3 4-0 Prolene using simple sutures and sterile technique. Dressed with Neosporin, 4x4's. Patient tolerated well. 18:12 Wound Repair of 2cm ( 0.8in ) subcutaneous laceration to dorsal aspect of proximal pm1 phalanx of left index finger. Irregularly shaped.. Distal neuro/vascular/tendon intact. Anesthesia: Local anesthetic administered with 1 mls of Lido/Marcaine. Wound prep: Extensive cleansing with betadine with hibiclenz by me, Wound irrigation with saline by me, Wound explored extensively, Copious irrigation. Skin closed with 3 4-0 Prolene using simple sutures and sterile technique. Dressed with Neosporin, 4x4's. Patient tolerated well. MDM: 16:[address] [facility] 18:16 Data reviewed: vital signs. Data interpreted: Pulse oximetry: on room air is 100 %. pm1 Interpretation: normal. Counseling: I had a detailed discussion with the patient and/or guardian regarding: the historical points, exam findings, and any diagnostic results supporting the discharge/admit diagnosis, radiology results, the need for outpatient follow up, for definitive care, a hand specialist, to return to the emergency department if symptoms worsen or persist or if there are any questions or concerns that arise at home. 18:16 Special discussion: I discussed in detail with the patient the higher chance of wound pm1 infection based on his presenting history. 08/07 16:28 Order name: Hand Left 3 View XRAY; Complete Time: 18:19 pm1 08/07 16:28 Order name: Prolene, Sutures; Complete Time: 18:06 pm1 08/07 16:28 Order name: Dressing - Wound; Complete Time: 18:29 pm1 08/07 16:28 Order name: Gloves, Sterile; Complete Time: 17:01 pm1 08/07 16:28 Order name: Setup Suture Tray; Complete Time: 17:01 pm1 Administered Medications: 17:55 Drug: Bupivacaine (0.5 %) 10 ml Volume: 10 ml; Route: Infiltration; rb3 17:55 Drug: Lidocaine (1 %) 5 ml Volume: 5 ml; Route: Infiltration; rb3 18:15 Drug: Tetanus-Diphtheria Toxoid Adult 0.5 ml {Studio Operations Engineer In Charge: [employer]. Exp: rb3 04/16/2022. Lot #: [id number]. } Route: IM; Site: right deltoid; 18:30 Follow up: Response: No adverse reaction rb3 18:28 Drug: Doxycycline 100 mg Route: PO; rb3 18:41 Follow up: Response: Medication administered at discharge. rb3 Disposition: 21:18 Co-signature as Attending Physician, oDn Jackson MD I agree with the assessment and nilson plan of care. Disposition: 08/07/20 18:18 Discharged to Home. Impression: Laceration without foreign body of left hand. - Condition is Stable. - Discharge Instructions: Laceration Care, Adult. - Prescriptions for Doxycycline Hyclate 100 mg Oral Tablet - take 1 tablet by ORAL route every 12 hours; 20 tablet. - Medication Reconciliation Form, Thank You Letter, Antibiotic Education, Prescription Opioid Use form. - Follow up: Emergency Department; When: As needed; Reason: Worsening of condition. Follow up: Boy Nava MD; When: 2 - 3 days; Reason: Recheck today's complaints, Continuance of care, Re-evaluation by your physician. - Problem is new. - Symptoms have improved. - Notes: Sutre removal in 10-14 days Signatures: Dispatcher [employer] EDAR Don Jackson MD MD cha Marinas, Patrick, DIGITAL CIRCUIT DESIGNER DIGITAL CIRCUIT DESIGNER pm1 Helen Baeza, RN RN ll1 Tatyana Coelho, RN RN rb3 Corrections: (The following items were deleted from the chart) 18:47 18:18 08/07/2020 18:18 Discharged to Home. Impression: Laceration without foreign body rb3 of left hand. Condition is Stable. Forms are Medication Reconciliation Form, Thank You Letter, Antibiotic Education, Prescription Opioid Use. Follow up: Emergency Department; When: As needed; Reason: Worsening of condition. Follow up: Boy Nava; When: 2 - 3 days; Reason: Recheck today's complaints, Continuance of care, Re-evaluation by your physician. Problem is new. Symptoms have improved. pm1
[2020-08-07] MEDS ORDERED: DOXYCYCLINE 100 MG CAP PO ONE (18:47)
[2020-08-07 18:58] VITALS: TEMP 97.4
[2020-08-07 19:03] VITALS: BP 155/93; O2SAT 99
== END 2020-08-07 18:47 | disposition home or self-care (01) ==
LOC: ER 15:10
PROC: 0JQK0ZZ Repair Left Hand Subcutaneous Tissue and Fascia, Open Approach (ICD-10-PCS; principal; 2020-08-07)
DX: S61.211A Laceration without foreign body of left index finger without damage to nail, initial encounter (principal); S61.217A Laceration without foreign body of left little finger without damage to nail, initial encounter; W26.8XXA Contact with other sharp object(s), not elsewhere classified, initial encounter; Y92.832 Beach as the place of occurrence of the external cause; Z23 Encounter for immunization; I10 Essential (primary) hypertension
CPT/HCPCS: 90471; 90714; 99284

== ENCOUNTER 2020-08-17 15:35 | Emergency (ER) | payer OTHER ==
--- OUTSIDE RECORDS SUMMARY | 2020-08-17 15:44 | XMS REPORT | Continuity of Care Document ---
:1955 Author Organization [facility] t Address 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 Me thodi nucleus nucleus [...] Date Stop Date Source Natural father Cancer [facility] thodist Natural mother Cancer [facility] thodist Social History Social Habit Start Date Stop Date Quantity Comments Source Alcohol intake 2016-01-17 2016-01-17 Current drinker of Enzo Alexis 00:00:00 00:00:00 alcohol (finding) Alcohol Comment 2015-10-29 2015-10-29 occasional [place] Seht ethodist 00:00:00 00:00:00 Sex [birth year] [place] Seth ethodist 00:00:00 00:00:00 Smoking Status Start Date [...] ONE Kyle ston (NEURONTIN) 2-12 CAPSULE BY Pa thodi 300 mg 00:00: MOUTH 3 st [...] Scheduled 2005-06-09 SHINGLES VACCINES (#1) Annie calderon [facility] 00:00:00 [code = SHINGLES VACCINES (#1)] Future Scheduled 1967 COVID-19 VACCINE (1) Kyle downey [facility] 00:00:00 [code = COVID-19 VACCINE (1)] Results This patient has no known results.
--- NOTE | 2020-08-17 15:51 | ER ---
Nurse's Notes [facility] Name: Zaheer Cash Age: 65 yrs Sex: Male : 1955 Arrival Date: 08/17/2020 Time: 15:37 Bed Waiting Private MD: Diagnosis: Encounter for removal of sutures Presentation: 08/17 15:39 Chief complaint: Patient states: needs sutures removed from left hand. Coronavirus sv screen: Client denies travel out of the [place] in the last 14 days. At this time, the client does not indicate any symptoms associated with coronavirus-19. Ebola Screen: No symptoms or risks identified at this time. Risk Assessment: Do you want to hurt yourself or someone else? Patient reports no desire to harm self or others. Onset of symptoms was August 17, 2020. 15:39 Method Of Arrival: Ambulatory sv 15:39 Acuity: IFEANYI 5 sv 15:44 Initial Sepsis Screen: Does the patient meet any 2 criteria? No. Patient's initial sv sepsis screen is negative. Does the patient have a suspected source of infection? No. Patient's initial sepsis screen is negative. Triage Assessment: 15:40 General: Appears in no apparent distress. comfortable, Behavior is calm, cooperative, sv appropriate for age. Pain: Denies pain. Neuro: Level of Consciousness is awake, alert, obeys commands, Oriented to person, place, time, situation, Gait is steady. Respiratory: Respiratory effort is even, unlabored. Historical: - Allergies: 15:40 gabapentin; sv 15:40 Celecoxib; sv 15:40 pregabalin; sv - PMHx: 15:40 Hypertension; sv - Immunization history:: Adult Immunizations up to date. - Social history:: Smoking status: Patient denies any tobacco usage or history of. Screenin:41 Abuse screen: Denies threats or abuse. Denies injuries from another. Nutritional sv screening: No deficits noted. Tuberculosis screening: No symptoms or risk factors identified. Fall Risk None identified. Assessment: 15:41 Reassessment: Patient appears in no apparent distress at this time. See triage sv assessment. 15:41 Reassessment: Claus RIVERA here in triage to assess. sv 15:42 Reassessment: Claus RIVERA removing sutures at this time. sv Vital Signs: 15:44 Pulse 80; Resp 16; Temp 98; Pulse Ox 98% ; sv ED Course: 15:37 Patient arrived in ED. wm 15:39 Triage completed. sv 15:39 Arm band placed on. sv 15:41 Patient has correct armband on for positive identification. sv 15:41 No provider procedures requiring assistance completed. Patient did not have IV access sv during this emergency room visit. 15:45 Claus Gan NP is PHCP. pm1 15:45 Don Jackson MD is Attending Physician. pm1 Administered Medications: No medications were administered Outcome: 15:44 Discharged to home ambulatory. sv 15:44 Condition: stable 15:44 Discharge instructions given to patient, Instructed on discharge instructions, follow up and referral plans. Demonstrated understanding of instructions, follow-up care. 15:51 Discharge ordered by . pm1 16:59 Patient left the ED. sv Signatures: Mer Mendoza RN RN Claus Gan NP PIT SLAGMAN pm1 Reyna Hernandez wm
--- NOTE | 2020-08-17 15:52 | EDPHYS ---
Physician Documentation [facility] Name: Zaheer Cash Age: 65 yrs Sex: Male : 1955 Arrival Date: 08/17/2020 Time: 15:37 Bed Waiting Private MD: Don Su HPI: 08/17 15:50 This 65 yrs old Black Male presents to ER via Ambulatory with complaints of Suture pm1 Removal. 15:50 The patient has sutures on the left hand. Previous treatment: The patient was initially pm1 treated on August 07, 2020, the care was rendered at [facility], Treatment type: The patient's original treatment included sutures, Outpatient prescription(s): The patient was given prescription(s) for Doxycycline. Sutures/jose progress: The patient has no c/o's. The wound is well-healing with no redness, swelling, discharge, or dehiscence reported. The patient has not experienced similar symptoms in the past. The patient has not recently seen a physician. Patient presenting for suture removal. Wounds well healed without any fever, discharge, reddness. Historical: - Allergies: 15:40 gabapentin; sv 15:40 Celecoxib; sv 15:40 pregabalin; sv - PMHx: 15:40 Hypertension; sv - Immunization history:: Adult Immunizations up to date. - Social history:: Smoking status: Patient denies any tobacco usage or history of. ROS: 15:50 Constitutional: Negative for fever, chills, and weight loss, Cardiovascular: Negative pm1 for chest pain, palpitations, and edema, Respiratory: Negative for shortness of breath, cough, wheezing, and pleuritic chest pain, MS/Extremity: Negative for injury and deformity, Skin: Negative for injury, rash, and discoloration. 15:50 All other systems are negative. Exam: 15:50 Constitutional: This is a well developed, well nourished patient who is awake, alert, pm1 and in no acute distress. Head/Face: Normocephalic, atraumatic. 15:50 Cardiovascular: Exam negative for acute changes, Rate: normal, Rhythm: regular, Pulses: no pulse deficits are appreciated. 15:50 Respiratory: Exam negative for acute changes, respiratory distress, shortness of breath. 15:50 Musculoskeletal/extremity: 15:50 Skin: Appearance: normal except for affected area, Wound recheck: Suture laceration closure: the wound is healing well, the edges are well approximated, no evidence of dehiscence, no drainage, no erythema, no swelling. 15:50 Neuro: Exam negative for acute changes, Orientation: is normal, Mentation: is normal, Motor: is normal, moves all fours. Vital Signs: 15:44 Pulse 80; Resp 16; Temp 98; Pulse Ox 98% ; sv Procedures: 15:50 Suture/Staple removal: Removed 5 sutures, from left hand, site appears well healed, pm1 Patient tolerated well. MDM: 15:50 Data reviewed: vital signs. Counseling: I had a detailed discussion with the patient pm1 and/or guardian regarding: the historical points, exam findings, and any diagnostic results supporting the discharge/admit diagnosis, to return to the emergency department if symptoms worsen or persist or if there are any questions or concerns that arise at home. 15:51 Patient medically screened. pm1 Administered Medications: No medications were administered Disposition: 18:54 Co-signature as Attending Physician, Don Jackson MD I agree with the assessment and nilson plan of care. Disposition Summary: 08/17/20 15:51 Discharge Ordered Location: Home pm1 Problem: new pm1 Symptoms: have improved pm1 Condition: Stable pm1 Diagnosis - Encounter for removal of sutures pm1 Followup: pm1 - With: Emergency Department - When: As needed - Reason: Worsening of condition Followup: pm1 - With: Private Physician - When: As needed - Reason: Recheck today's complaints, Continuance of care, Re-evaluation by your physician Discharge Instructions: - Discharge Summary Sheet pm1 - Suture Removal, Care After pm1 Forms: - Medication Reconciliation Form pm1 - Thank You Letter pm1 - Antibiotic Education pm1 - Prescription Opioid Use pm1 Signatures: Mer Mendoza RN RN sv Anderson, Corey, MD MD cha Marinas, Patrick, MIGUEL APPLIED COMPUTER SCIENCE PROFESSOR pm1
[2020-08-17 17:13] VITALS: TEMP 98; O2SAT 98
== END 2020-08-17 16:59 | disposition home or self-care (01) ==
LOC: ER 15:35
DX: Z48.02 Encounter for removal of sutures (principal)
CPT/HCPCS: 99281